=== PATIENT | male | born 1985 | race African-American/Black ===

== ENCOUNTER 2017-03-14 12:37 | Emergency (ER) | payer SELFPAY ==
[~2017-03-14] VITALS: Ht 180.3 cm; Wt 111.4 kg
[2017-03-14] MEDS ORDERED: TESS100C PO (13:53)
[2017-03-14] MEDS ORDERED: VENTAER IN (13:53)
[2017-03-14 14:10] VITALS: BP 118/77
== END 2017-03-14 14:17 | disposition home or self-care (01) ==
LOC: M ED 12:37
DX: J06.9 Acute upper respiratory infection, unspecified (principal); Z72.0 Tobacco use

== ENCOUNTER → 2017-09-29 | Outpatient (CLI) | payer OTHER ==
[2017-10-02 00:08] LABS: QUANTIFERON GOLD TB Negative (Negative); TB Test (QFT) Antigen 0.03 IU/mL (.); TB Test (QFT) Antigen Minus Ni <0.01 IU/mL (.); TB Test (QFT) Mitogen 6.81 IU/mL (.); TB Test (QFT) Nil 0.04 IU/mL (.)
== END ==
LOC: M LAB 15:40
DX: R76.11 Nonspecific reaction to tuberculin skin test without active tuberculosis (principal)
CPT/HCPCS: 71046

== ENCOUNTER → 2018-09-22 | Outpatient (CLI) | payer OTHER ==
[~2018-09-22] MED LIST: TESS100C PO; VENTAER IN
[2018-09-22 17:35] LABS: ALBUMIN 3.8 GM/DL (3.2-5.2); ALT/SGPT 39 U/L (12-78); BILIRUBIN,TOTAL 0.5 MG/DL (0.2-1.0); BLOOD UREA NITROGEN 12 MG/DL (7-18); CALCIUM LEVEL 8.5 MG/DL (8.5-10.1); CARBON DIOXIDE LEVEL 28 MEQ/L (21-32); CHLORIDE LEVEL 106 MEQ/L (98-107); CHOLESTEROL LEVEL 189 MG/DL (<200); CREATININE FOR GFR 1.09 MG/DL (0.70-1.30); FREE T4 0.99 NG/DL (0.76-1.46); GLOMERULAR FILTRATION RATE > 60.0 (>60); GLUCOSE, FASTING 123 MG/DL (70-100); HDL CHOLESTEROL 45 MG/DL (>40); LDL CHOLESTEROL 121 MG/DL (<100); NON-HDL-C 144 MG/DL; POTASSIUM SERUM 4.3 MEQ/L (3.5-5.1); SODIUM LEVEL 141 MEQ/L (136-145); TOTAL PROTEIN 7.2 GM/DL (6.4-8.2); TRIGLYCERIDES LEVEL 113 MG/DL (<150)
[2018-09-22 17:40] LABS: HEMOGLOBIN A1c 5.7 %
[2018-09-22 17:43] LABS: BASO # 0.1 10^3/uL (0.0-0.2); BASO % 0.6 % (0.0-1.0); EOS # 0.2 10^3/uL (0.0-0.50); EOS % 1.8 % (0.0-3.0); HEMATOCRIT 47.8 % (42.0-52.0); LYMPH % 32.1 % (24.0-44.0); MEAN CORPUSCULAR HEMOGLOBIN 30.7 pg (27.0-33.0); MEAN CORPUSCULAR HGB CONC 33.5 g/dl (32.0-36.5); MEAN CORPUSCULAR VOLUME 91.6 fl (80.0-96.0); MONO # 0.7 10^3/uL (0.0-0.8); MONO % 7.7 % (0.0-5.0); NEUTROPHILS # 5.3 10^3/uL (1.8-7.7); NEUTROPHILS % 56.7 % (36.0-66.0); PLATELET COUNT, AUTOMATED 281 10^3/uL (150-450); RED BLOOD COUNT 5.22 10^6/uL (4.30-6.10); WHITE BLOOD COUNT 9.3 10^3/uL (4.0-10.0)
== END ==
LOC: M WUC 14:15
PROVIDERS: ATTEND Nurse Practitioner Adult Health
DX: Z00.00 Encounter for general adult medical examination without abnormal findings (principal); Z83.3 Family history of diabetes mellitus; Z83.42 Family history of familial hypercholesterolemia

== ENCOUNTER 2019-10-16 01:30 | Emergency (ER) | payer MEDICAID, OTHER ==
[~2019-10-16] VITALS: Ht 180.3 cm; Wt 136.4 kg
[2019-10-16 02:11] LABS: BASO # 0.1 10^3/uL (0.0-0.2); BASO % 0.4 % (0.0-1.0); EOS # 0.1 10^3/uL (0.0-0.5); EOS % 0.4 % (0.0-3.0); HEMATOCRIT 45.5 % (42.0-52.0); HEMOGLOBIN 15.2 g/dl (13.5-17.5); LYMPH # 4.5 10^3/uL (1.5-5.0); LYMPH % 28.4 % (24.0-44.0); MEAN CORPUSCULAR HEMOGLOBIN 29.7 pg (27.0-33.0); MEAN CORPUSCULAR HGB CONC 33.4 g/dl (32.0-36.5); MONO # 1.3 10^3/uL (0.0-0.8); MONO % 8.2 % (0.0-5.0); NEUTROPHILS # 9.9 10^3/uL (1.5-8.5); NEUTROPHILS % 61.9 % (36.0-66.0); PLATELET COUNT, AUTOMATED 358 10^3/uL (150-450); RED BLOOD COUNT 5.11 10^6/uL (4.30-6.10)
[2019-10-16] MEDS ORDERED: KETOROLAC 30 MG/ML 1ML VIAL IV ONE (02:45)
[2019-10-16] MEDS ORDERED: NS 1,000 ML IV ONE (03:30)
[2019-10-16] MEDS ORDERED: FLOM0.4C39 PO (06:34)
[2019-10-16] MEDS ORDERED: PERC5TAB12 PO (06:34)
[2019-10-16] MEDS ORDERED: TAMSULOSIN 0.4 MG CAP PO ONE (06:45)
[2019-10-16] MEDS ORDERED: OXYCODONE/APAP 5MG/325MG(BULK FOR ED) 1 TABLET PO ONE (06:45)
[2019-10-16 06:56] VITALS: BP 155/90
--- NOTE | 2019-10-17 09:34 | REP ---
REPEAT DICTATION CT ABDOMEN AND PELVIS WITHOUT IV OR ORAL CONTRAST: HISTORY: Abdomen pain, left flank pain. Preliminary report provided at the time of the exam by [facility]. FINDINGS: Preliminary digital photography and prints curator radiographs shows an unremarkable bowel gas pattern. The lung bases are clear on axial CT images. The liver and spleen are normal in size homogeneous in texture. No abnormality is noted in the gallbladder or the pancreas. No adrenal lesion is seen. There is mild to moderate left-sided hydronephrosis. Left hydroureter is seen with a UVJ calculus on the left measuring 6 mm in greatest dimension. No intrarenal calculus is observed on either side. No right-sided hydronephrosis is seen. No retroperitoneal mass or adenopathy is observed. Small and large bowel loops are unremarkable. Urinary bladder is intact. There are dystrophic calcifications of the prostate. The exam is otherwise unremarkable. Impression: 6 mm obstructive left distal ureteral stone at the ureterovesical junction with left-sided hydronephrosis. Electronically Signed by Jg Lagos MD 10/17/2019 11:00 A
== END 2019-10-16 06:56 | disposition home or self-care (01) ==
LOC: M ED 01:30
DX: N20.1 Calculus of ureter (principal); Z72.0 Tobacco use
CPT/HCPCS: 74176; 80047; 81001; 85025; 96361; 96374; 99284; J1885

== ENCOUNTER 2019-11-08 21:55 | Emergency (ER) | payer OTHER ==
[~2019-11-08] VITALS: Ht 180.3 cm; Wt 133.8 kg
[~2019-11-08 21:55] MED LIST changes: +FLOM0.4C39 PO; +PERC5TAB12 PO
[2019-11-08] MEDS ORDERED: KETOROLAC 30 MG/ML 1ML VIAL IV ONE (23:15)
[2019-11-08] MEDS ORDERED: NS 1,000 ML IV ONE (23:15)
[2019-11-08] MEDS ORDERED: ONDANSETRON 4MG/2ML VIAL IV ONE (23:15)
[2019-11-08 23:47] LABS: BASO % 0.3 % (0.0-1.0); EOS # 0.1 10^3/uL (0.0-0.5); EOS % 0.9 % (0.0-3.0); HEMATOCRIT 44.7 % (42.0-52.0); LYMPH # 2.5 10^3/uL (1.5-5.0); LYMPH % 19.7 % (24.0-44.0); MEAN CORPUSCULAR HEMOGLOBIN 29.6 pg (27.0-33.0); MEAN CORPUSCULAR HGB CONC 33.6 g/dl (32.0-36.5); MEAN CORPUSCULAR VOLUME 88.2 fl (80.0-96.0); MONO # 1.2 10^3/uL (0.0-0.8); MONO % 9.5 % (0.0-5.0); NEUTROPHILS # 8.9 10^3/uL (1.5-8.5); NEUTROPHILS % 68.8 % (36.0-66.0); PLATELET COUNT, AUTOMATED 258 10^3/uL (150-450); RED BLOOD COUNT 5.07 10^6/uL (4.30-6.10); WHITE BLOOD COUNT 12.9 10^3/uL (4.0-10.0)
--- NOTE | 2019-11-08 23:53 | REPVR ---
PROCEDURE INFORMATION: Exam: CT Abdomen And Pelvis Without Contrast Exam date and time: 11/08/2019 11:11 PM Age: 34 years old Clinical indication: Abdominal pain; Flank; Left; Additional info: Left sided flank pain, hematuria TECHNIQUE: Imaging protocol: Computed tomography of the abdomen and pelvis without contrast. Radiation optimization: All CT scans at this facility use at least one of these dose optimization techniques: automated exposure control; mA and/or kV adjustment per patient size (includes targeted exams where dose is matched to clinical indication); or iterative reconstruction. COMPARISON: CT ABD PELVIS W/O CONTRAST 10/16/2019 3:32 AM FINDINGS: Liver: Normal. No mass. Gallbladder and bile ducts: Normal. No calcified stones. No ductal dilation. Pancreas: Normal. No ductal dilation. Spleen: Normal. No splenomegaly. Adrenals: Normal. No mass. Kidneys and ureters: No right hydronephrosis. Mild left hydronephrosis. Stone in the left ureterovesicular junction measuring 5 x 3 mm. No renal lesions otherwise. Stomach and bowel: Diffuse mild thickening of the left colon, sigmoid colon and rectum with decreased haustral folds. No abnormal bowel dilatation. Mild colonic diverticulosis without diverticulitis. Appendix: Appendix is normal. Intraperitoneal space: Unremarkable. No free air. No significant fluid collection. Vasculature: Unremarkable. No abdominal aortic aneurysm. Lymph nodes: Unremarkable. No enlarged lymph nodes. Bladder: Unremarkable as visualized. Reproductive: Prostate is normal in size. Mild calcifications within the prostate which are likely incidental. Bones/joints: Severe degenerative spine. No acute fracture. Soft tissues: Small umbilical hernia containing fat. There is no evidence of strangulation. IMPRESSION: 1. Acute obstructive left uropathy with ureterovesicular junction stone. 2. Conspicuous diffuse mild thickening of the left colon, sigmoid colon and rectum with decreased haustral folds. Unchanged from prior. Possible hypertrophic changes. Consider follow-up evaluation if colonic symptoms are present. Electronically signed by: Anupam Jeff On 11/08/2019 23:53:15 PM
[2019-11-09 00:45] VITALS: BP 141/89
[2019-11-09] MEDS ORDERED: TAMSULOSIN 0.4 MG CAP PO ONE (00:45)
[2019-11-09] MEDS ORDERED: PERC5TAB12 PO (00:45)
[2019-11-09] MEDS ORDERED: OXYCODONE/APAP 5MG/325MG(BULK FOR ED) 1 TABLET PO ONE (00:45)
[2019-11-09] MEDS ORDERED: FLOM0.4C39 PO (00:45)
--- NOTE | 2019-11-09 13:15 | ED PDOC ---
Post-Departure Follow-Up jose elias norris faxed formal report of ct abd/p for fu ashleyg Eula Morris MD Nov 09, 2019 13:14
== END 2019-11-09 00:59 | disposition home or self-care (01) ==
LOC: M ED 21:55
DX: N20.1 Calculus of ureter (principal); R93.3 Abnormal findings on diagnostic imaging of other parts of digestive tract; Z87.442 Personal history of urinary calculi; Z72.0 Tobacco use
CPT/HCPCS: 74176; 80047; 81001; 85025; 96361; 96374; 96375; 99284; J1885; J2405

== ENCOUNTER → 2019-12-19 | Outpatient (CLI) | payer OTHER ==
[~2019-12-19] MED LIST changes: +CIPR-249 PO; +IBUP-1422 PO; +NORC1TAB7 PO
== END ==
LOC: M LABSMTC 11:11
PROVIDERS: ATTEND Anesthesiology
DX: Z11.59 Encounter for screening for other viral diseases (principal)
CPT/HCPCS: C9803; U0002

== ENCOUNTER 2019-12-22 10:10 | Day surgery (SDC) | payer OTHER ==
[~2019-12-22] VITALS: Ht 180.3 cm; Wt 134.0 kg
[~2019-12-22 10:10] MED LIST changes: -CIPR-249 PO; +CONRAY-60 60% 50ML VIAL (Q9961) As Ordered ONE; -IBUP-1422 PO; +KETOROLAC 60MG 2ML VIAL As Ordered ONE; +LIDOCAINE 2% 100MG/5ML SDV (FOR ANES.) As Ordered ONE; +MIDAZOLAM INJ 2MG/2ML VIAL (J2250 PER 1MG) As Ordered ONE; -NORC1TAB7 PO; +ONDANSETRON 4MG/2ML VIAL As Ordered ONE; +dexameTHASONE 4 MG/ML 1ML VIAL (J1100 PER 1MG) As Ordered ONE; +fentaNYL 100 MCG/2 ML INJECTION (J3010) As Ordered ONE; +propofoL 200 MG/20 ML VIAL As Ordered ONE
[2019-12-22] MEDS ORDERED: propofoL 200 MG/20 ML VIAL As Ordered ONE (10:25)
[2019-12-22] MEDS ORDERED: dexameTHASONE 4 MG/ML 1ML VIAL (J1100 PER 1MG) As Ordered ONE (10:25)
[2019-12-22] MEDS ORDERED: KETOROLAC 60MG 2ML VIAL As Ordered ONE (10:25)
[2019-12-22] MEDS ORDERED: ONDANSETRON 4MG/2ML VIAL As Ordered ONE (10:25)
[2019-12-22] MEDS ORDERED: LIDOCAINE 2% 100MG/5ML SDV (FOR ANES.) As Ordered ONE (10:26)
[2019-12-22] MEDS ORDERED: ceFAZolin 2 GM/D5W 50 ML IV BAG (J0690 PER 500MG) As Ordered ONE (10:30)
[2019-12-22] MEDS ORDERED: ceFAZolin SOD 2 GM in IV 1 EA IV ONE (10:45)
[2019-12-22] MEDS ORDERED: fentaNYL 100 MCG/2 ML INJECTION (J3010) IV PRN (12:45)
[2019-12-22] MEDS ORDERED: oxyCODONE 5MG TAB PO PRN (12:45)
[2019-12-22] MEDS ORDERED: LR 1,000 ML IV SCH (12:45)
[2019-12-22] MEDS ORDERED: ONDANSETRON 4MG/2ML VIAL IV PRN (12:45)
[2019-12-22] MEDS ORDERED: PERCOCET 5MG/325MG TAB PO PRN (13:00)
[2019-12-22 16:10] VITALS: BP 137/82
--- NOTE | 2020-01-01 17:39 | REP ---
RETROGRADE PYELOGRAM: 3-VIEWS HISTORY: Cystoscopy, laser stent. 12 seconds of fluoroscopy time is reported. FINDINGS: A sequence of three last image hold fluoroscopically obtained spot radiographs of the abdomen document ureteral cannulation, contrast injection, and stent placement. LYN
[2020-01-05 17:07] LABS: CA Oxalate Dihy 20 % (.); Ca Ox Monohydrate 75 % (.)
--- NOTE | 2020-01-10 09:09 | RO ---
DATE OF OPERATION: 12/22/2019. PREOPERATIVE DIAGNOSIS: Left ureteral stone. POSTOPERATIVE DIAGNOSIS: Left ureteral stone. PROCEDURES: Cystoscopy, left ureteroscopy with basket extraction of stone, left retrograde pyelogram with intraoperative interpretation images, left ureteral stent placement. SURGEON: Geovany Campos MD. COLLEGE SPORTS ASSISTANT: None. ANESTHESIA: General. OPERATIVE INDICATIONS: This is a 34-year-old male who was found to have an obstructing 5 mm left ureterovesical junction stone on CAT scan. He was brought to the operating room today for treatment. DESCRIPTION OF PROCEDURE: The patient was brought to the operating room and general anesthesia was induced. Prophylactic antibiotics were infused. He was placed in the dorsal lithotomy position and prepped and draped in the usual sterile fashion. A rigid cystoscope was inserted into the urethral meatus and advanced to the bladder. A guidewire was advanced up to the left collecting system. I went up the left collecting system with short semi-rigid ureteroscope and within the distal ureter, the 5-mm stone was seen. The stone was grasped with a basket and withdrawn completely. I then examined the more proximal ureter and no additional stones were seen. A left retrograde pyelogram was performed and notable for moderate left hydronephrosis. I then withdrew the ureteroscope. I then utilized the previously placed guidewire to advance a 6-[place] x 22-32 cm ureteral stent into the left collecting system. The wire was removed and adequate curl of the stent in the left renal pelvis and in the bladder. The bladder was emptied of all fluids and this marked conclusion of the procedure. The patient was taken out of the dorsal lithotomy position, awakened from anesthesia, and transferred to the recovery room in stable condition. ESTIMATED BLOOD LOSS: 5 mL. COMPLICATIONS: None. SPECIMEN: Kidney stone. PLAN: The patient will follow-up in urology clinic in a few weeks for stent removal. LYN
== END 2019-12-22 16:50 | disposition home or self-care (01) ==
LOC: M SDC 10:10
PROVIDERS: ATTEND Urology
DX: N20.1 Calculus of ureter (principal)
CPT/HCPCS: 52332; 52352; 74420; 82365; 88300; C1769; C1894; C2617; J0690; J1100; J1885; J2250; J2405; J3010

== ENCOUNTER 2019-12-27 08:00 | Emergency (ER) | payer OTHER ==
[~2019-12-27] VITALS: Ht 180.3 cm; Wt 136.0 kg
[~2019-12-27 08:00] MED LIST changes: -CONRAY-60 60% 50ML VIAL (Q9961) As Ordered ONE; -KETOROLAC 60MG 2ML VIAL As Ordered ONE; -LIDOCAINE 2% 100MG/5ML SDV (FOR ANES.) As Ordered ONE; -MIDAZOLAM INJ 2MG/2ML VIAL (J2250 PER 1MG) As Ordered ONE; -ONDANSETRON 4MG/2ML VIAL As Ordered ONE; -dexameTHASONE 4 MG/ML 1ML VIAL (J1100 PER 1MG) As Ordered ONE; -fentaNYL 100 MCG/2 ML INJECTION (J3010) As Ordered ONE; -propofoL 200 MG/20 ML VIAL As Ordered ONE
[2019-12-27] MEDS ORDERED: IBUP-1422 PO (08:04)
[2019-12-27] MEDS ORDERED: MORPHINE 4 MG/ML 1ML VIAL/SYRINGE (J2270) IV ONE (08:30)
[2019-12-27] MEDS ORDERED: ONDANSETRON 4MG/2ML VIAL IV ONE (08:30)
[2019-12-27] MEDS ORDERED: KETOROLAC 30 MG/ML 1ML VIAL IV ONE (08:30)
[2019-12-27 09:04] LABS: BASO # 0.1 10^3/uL (0.0-0.2); BASO % 0.6 % (0.0-1.0); EOS # 0.4 10^3/uL (0.0-0.5); EOS % 4.3 % (0.0-3.0); HEMATOCRIT 40.7 % (42.0-52.0); HEMOGLOBIN 13.6 g/dl (13.5-17.5); LYMPH # 3.1 10^3/uL (1.5-5.0); LYMPH % 29.8 % (24.0-44.0); MEAN CORPUSCULAR HEMOGLOBIN 29.8 pg (27.0-33.0); MEAN CORPUSCULAR HGB CONC 33.4 g/dl (32.0-36.5); MEAN CORPUSCULAR VOLUME 89.1 fl (80.0-96.0); MONO # 0.8 10^3/uL (0.0-0.8); MONO % 7.9 % (0.0-5.0); NEUTROPHILS # 5.9 10^3/uL (1.5-8.5); PLATELET COUNT, AUTOMATED 311 10^3/uL (150-450); RED BLOOD COUNT 4.57 10^6/uL (4.30-6.10); WHITE BLOOD COUNT 10.3 10^3/uL (4.0-10.0)
--- NOTE | 2019-12-27 09:16 | REPVR ---
PROCEDURE INFORMATION: Exam: CT Abdomen And Pelvis Without Contrast Exam date and time: 12/27/2019 8:36 AM Age: 34 years old Clinical indication: Abdominal pain; Flank; Left; Additional info: HX stent and increase pain TECHNIQUE: Imaging protocol: Computed tomography of the abdomen and pelvis without contrast. Coronal and sagittal reformats were created and reviewed. Radiation optimization: All CT scans at this facility use at least one of these dose optimization techniques: automated exposure control; mA and/or kV adjustment per patient size (includes targeted exams where dose is matched to clinical indication); or iterative reconstruction. COMPARISON: CT ABD PELVIS W/O CONTRAST 11/08/2019 11:14 PM FINDINGS: Lungs: The visualized lung bases are unremarkable. Liver: Liver is unremarkable. Gallbladder and bile ducts: The gallbladder is unremarkable. No intrahepatic or extrahepatic bile duct dilation. Pancreas: Pancreas is unremarkable. Spleen: Spleen is unremarkable. Adrenals: Adrenal glands are unremarkable. Kidneys and ureters: The right kidney is unremarkable. No right ureteral calculus or abnormal dilation. Indwelling double-J left ureteral stent with its loops formed within the left renal pelvis and urinary bladder. No left ureteral calculus. No left hydroureter. Mild diffuse left periureteric fat stranding. No left nephrolithiasis. Stable mild left hydronephrosis. Stomach and bowel: The stomach is unremarkable. Colonic diverticula are present without evidence of acute diverticulitis. No evidence of small bowel inflammation or obstruction. Appendix: The appendix is visualized. No evidence of appendicitis. Intraperitoneal space: No free intraperitoneal fluid. No pneumoperitoneum. Vasculature: No abdominal aortic aneurysm. Lymph nodes: No enlarged lymph nodes. Bladder: The urinary bladder is decompressed. Reproductive: Nonspecific prostate calcifications redemonstrated. Bones/joints: Multilevel severe degenerative spine disease. This includes multiple lumbar central canal stenosis and bilateral neural foraminal stenoses. For the purposes of this report labeling, 4 non rib-bearing lumbar vertebrae are present. Grade 1 retrolisthesis of L2 on L3. Grade 1 retrolisthesis of L3 on L4. Soft tissues: Small fat-containing umbilical hernia. IMPRESSION: The left ureteral stent appears appropriately positioned. Mild diffuse left periureteric fat stranding is now present consistent with left ureteral inflammation and/or infection. Stable mild left hydronephrosis. Electronically signed by: Alexander Li On 12/27/2019 09:16:12 AM
[2019-12-27 09:26] LABS: ALBUMIN 3.8 GM/DL (3.2-5.2); ALT/SGPT 37 U/L (12-78); BILIRUBIN,DIRECT < 0.1 MG/DL (0.0-0.2); BILIRUBIN,TOTAL 0.3 MG/DL (0.2-1.0); BLOOD UREA NITROGEN 13 MG/DL (7-18); CALCIUM LEVEL 8.9 MG/DL (8.5-10.1); CARBON DIOXIDE LEVEL 25 MEQ/L (21-32); CHLORIDE LEVEL 108 MEQ/L (98-107); CREATININE FOR GFR 1.34 MG/DL (0.70-1.30); GLOMERULAR FILTRATION RATE > 60.0 (>60); GLUCOSE, FASTING 128 MG/DL (70-100); LIPASE 125 U/L (73-393); POTASSIUM SERUM 3.9 MEQ/L (3.5-5.1); SODIUM LEVEL 142 MEQ/L (136-145); TOTAL PROTEIN 6.9 GM/DL (6.4-8.2)
[2019-12-27] MEDS ORDERED: NS 1,000 ML IV ONE (09:30)
[2019-12-27] MEDS ORDERED: CIPROFLOXACIN 400 MG in IV 1 EA IV ONE (10:00)
[2019-12-27] MEDS ORDERED: NORC1TAB7 PO (11:27)
[2019-12-27] MEDS ORDERED: CIPR-249 PO (11:27)
[2019-12-27 11:42] VITALS: BP 145/90
== END 2019-12-27 11:45 | disposition home or self-care (01) ==
LOC: M ED 08:00
DX: N10 Acute pyelonephritis (principal); Z96.0 Presence of urogenital implants; Z98.890 Other specified postprocedural states
CPT/HCPCS: 74176; 80048; 80076; 81001; 83690; 85025; 87086; 93041; 96365; 96375; 99284; J0744; J1885; J2270; J2405

== ENCOUNTER 2020-03-17 16:03 | Emergency (ER) | payer OTHER ==
[~2020-03-17] VITALS: Ht 180.3 cm; Wt 138.6 kg
[~2020-03-17 16:03] MED LIST changes: +CIPR-249 PO; +IBUP-1422 PO; +NORC1TAB7 PO
[2020-03-17] MEDS ORDERED: NAPR-837 PO (17:47)
--- NOTE | 2020-03-17 17:51 | REPVR ---
PROCEDURE INFORMATION: Exam: XR Right Foot Complete Exam date and time: 03/17/2020 5:07 PM Age: 34 years old Clinical indication: Pain; Heel; Right; Additional info: Pain, swelling posterior foot TECHNIQUE: Imaging protocol: XR Right foot. Views: 3 or more views. COMPARISON: No relevant prior studies available. FINDINGS: Bones/joints: A bipartite medial sub hallux sesamoid bone is identified. On the oblique view, small mineralized focus identified between the 2nd and 3rd metatarsal bases, and fracture fragment is considered. There is a linear band of lucency within the lateral cuneiform bone. This is likely post-traumatic or due to artifactual shadowing. The remaining bones of the right foot are intact. No dislocation. Soft tissues: There is borderline thickening/swelling of the heel pad. IMPRESSION: 1. There is borderline thickening/swelling of the heel pad. 2. On the oblique view, small mineralized focus identified between the 2nd and 3rd metatarsal bases, and fracture fragment is considered. Clinical correlation recommended. 3. There is a linear band of lucency within the lateral cuneiform bone. This is likely post-traumatic or due to artifactual shadowing. 4. A bipartite medial sub hallux sesamoid bone is identified. Electronically signed by: Juanjose Pro On 03/17/2020 17:51:10 PM
[2020-03-17 17:54] VITALS: BP 128/80
[2020-03-17] MEDS ORDERED: NAPROXEN 250 MG TAB PO ONE (18:00)
== END 2020-03-17 18:04 | disposition home or self-care (01) ==
LOC: M ED 16:03
DX: M76.61 Achilles tendinitis, right leg (principal)